=== PATIENT | male | born 1970 | race African-American/Black ===

== ENCOUNTER 2019-08-13 01:04 | Inpatient (IN) | payer MEDICAID ==
[~2019-08-13] VITALS: Ht 188 cm; Wt 124.7 kg
[2019-08-13] MEDS ORDERED: RISP1 PO (01:31)
[2019-08-13 02:08] LABS: BASOPHILS % (AUTO) 0.4 % (0.0-2.0); EOSINOPHILS % (AUTO) 0.1 % (1.0-6.0); HEMATOCRIT 44.1 % (41-53); HEMOGLOBIN 15.2 g/dL (13.5-17.5); LYMPHOCYTES % (AUTO) 7.9 % (22.0-44.0); MEAN CORPUSCULAR HEMOGLOBIN 31.6 pg (26.0-34.0); MEAN CORPUSCULAR HGB CONC 34.4 G/dL (31.0-37.0); MEAN CORPUSCULAR VOLUME 92 fL (80-100); MONOCYTES # (AUTO) 1.3 K/uL (0.1-1.0); MONOCYTES % (AUTO) 10.6 % (2.0-9.0); NEUTROPHILS # (AUTO) 9.8 K/uL (1.8-7.7); PLATELET COUNT (AUTO) 239 K/uL (150-450); RED CELL DISTRIBUTION WIDTH 13.6 % (11.5-14.5)
[2019-08-13 02:20] LABS: ANION GAP 7 mmol/L (8-16); CALCIUM, TOTAL 9.8 mg/dL (8.8-10.5); CARBON DIOXIDE 30 mmol/L (22-29); CHLORIDE 96 mmol/L (98-107); CREATININE 1.17 mg/dL (0.60-1.30); GLOMERULAR FILTR. RATE CALC > 60 mL/min (>60); GLUCOSE,RANDOM 117 mg/dL (70-110); SODIUM SERUM 133 mmol/L (136-145); UREA NITROGEN, BLOOD 15 mg/dL (7-18)
[2019-08-13 02:26] LABS: ALANINE AMINOTRANSFERASE 26 U/L (12-78); ALKALINE PHOSPHATASE 98 U/L (46-116); ASPARTATE AMINOTRANSFERASE 34 U/L (15-37); TOTAL PROTEIN, SERUM 8.5 g/dL (6.4-8.2)
[2019-08-13] MEDS ORDERED: ZOLPIDEM TARTRATE 10 MG TABLET PO PRN (03:30)
[2019-08-13] MEDS ORDERED: HALOPERIDOL 5 MG TABLET PO PRN (03:30)
[2019-08-13 06:05] VITALS: BP 142/93
[2019-08-13] MEDS ORDERED: PNEUMOCOCCAL VACCINE POLYVALENT 0.5 ML VIAL [PPSV23] IM ONE (06:30)
[2019-08-13 08:08] VITALS: BP 129/74
[2019-08-13] MEDS: VENLAFAXINE HCL 75 MG ER CAPSULE PO SCH (12:30)
[2019-08-13] MEDS ORDERED: ALBUTEROL SULFATE HFA 90 MCG/PUFF 8 GM INHALER IH PRN (13:15)
[2019-08-13] MEDS ORDERED: CloNIDine HCL 0.1 MG TABLET PO PRN (13:15)
[2019-08-13] MEDS ORDERED: DOCUSATE SODIUM 100 MG CAPSULE PO PRN (13:15)
[2019-08-13] MEDS ORDERED: IBUPROFEN 400 MG TABLET PO PRN (13:15)
[2019-08-13] MEDS ORDERED: GuaiFENesin/D-METHORPHAN [SUGAR-FREE] 200-20MG/10 ML SYRUP UDCUP PO PRN (13:15)
[2019-08-13] MEDS ORDERED: ACETAMINOPHEN 325 MG TABLET PO PRN (13:15)
[2019-08-13] MEDS ORDERED: LOPERAMIDE HCL 2 MG CAPSULE PO PRN (13:15)
[2019-08-13] MEDS ORDERED: NICOTINE 14 MG/24 HOUR PATCH TD PRN (13:15)
[2019-08-13] MEDS ORDERED: MAG HYDROX/AL HYDROX/SIMETH ES 30 ML SUSPENSION UDCUP PO PRN (13:15)
[2019-08-13] MEDS ORDERED: ONDANSETRON HCL 4 MG TABLET PO PRN (13:15)
[2019-08-13] MEDS ORDERED: MAGNESIUM HYDROXIDE SUSPENSION 30 ML UDCUP PO PRN (13:15)
[2019-08-13 16:30] VITALS: BP 139/76
[2019-08-13] MEDS: OXcarbazepine 300 MG TABLET PO SCH (16:59)
[2019-08-13] MEDS: PETROLATUM,WHITE 28 GM JELLY TP PRN (18:50)
[2019-08-13] MEDS: RisperiDONE 3 MG TABLET PO SCH (21:14)
[2019-08-13] MEDS: TRIHEXYPHENIDYL HCL 5 MG TABLET PO SCH (21:15)
[2019-08-14 03:38] VITALS: BP 136/78
[2019-08-14 08:14] LABS: BASOPHILS % (AUTO) 0.4 % (0.0-2.0); EOSINOPHILS % (AUTO) 2.7 % (1.0-6.0); HEMATOCRIT 38.4 % (41-53); HEMOGLOBIN 12.7 g/dL (13.5-17.5); LYMPHOCYTES # (AUTO) 1.7 K/uL (1.0-4.8); LYMPHOCYTES % (AUTO) 30.2 % (22.0-44.0); MEAN CORPUSCULAR HGB CONC 33.2 G/dL (31.0-37.0); MEAN CORPUSCULAR VOLUME 94 fL (80-100); MONOCYTES # (AUTO) 0.8 K/uL (0.1-1.0); MONOCYTES % (AUTO) 14.5 % (2.0-9.0); NEUTROPHILS # (AUTO) 2.9 K/uL (1.8-7.7); NEUTROPHILS % (AUTO) 52.2 % (40.0-70.0); PLATELET COUNT (AUTO) 193 K/uL (150-450); RED BLOOD CELL COUNT(AUTO) 4.11 MIL/uL (4.50-5.90); RED CELL DISTRIBUTION WIDTH 13.7 % (11.5-14.5)
[2019-08-14 08:19] VITALS: BP 111/72
[2019-08-14] MEDS: OXcarbazepine 300 MG TABLET PO SCH ×2 (08:20→16:15)
[2019-08-14] MEDS: VENLAFAXINE HCL 75 MG ER CAPSULE PO SCH (08:20)
[2019-08-14 08:37] LABS: CHOL/HDL RATIO 2.9 (4.2-7.3)
[2019-08-14] MEDS: LORazepam 2 MG TABLET PO PRN ×2 (13:21→21:08)
[2019-08-14] MEDS ORDERED: NICOTINE POLACRILEX 2 MG LOZENGE PO PRN (20:30)
[2019-08-14] MEDS: RisperiDONE 3 MG TABLET PO SCH (20:47)
[2019-08-14] MEDS: TRIHEXYPHENIDYL HCL 5 MG TABLET PO SCH (20:47)
[2019-08-14] MEDS: PETROLATUM,WHITE 28 GM JELLY TP PRN (21:16)
[2019-08-14 21:18] VITALS: BP 137/93
[2019-08-15 00:26] VITALS: BP 118/64
[2019-08-15 08:18] VITALS: BP 145/74
[2019-08-15 08:56] LABS: ALANINE AMINOTRANSFERASE 26 U/L (12-78); ALBUMIN 3.6 g/dL (3.4-5.0); ALKALINE PHOSPHATASE 73 U/L (46-116); ANION GAP 6 mmol/L (8-16); ASPARTATE AMINOTRANSFERASE 19 U/L (15-37); BILIRUBIN,TOTAL 0.4 mg/dL (0.1-1.0); CALCIUM, TOTAL 8.8 mg/dL (8.8-10.5); CARBON DIOXIDE 30 mmol/L (22-29); CHLORIDE 101 mmol/L (98-107); CREATININE 0.94 mg/dL (0.60-1.30); GLOMERULAR FILTR. RATE CALC > 60 mL/min (>60); GLUCOSE,RANDOM 95 mg/dL (70-110); POTASSIUM 4.3 mmol/L (3.5-5.1); SODIUM SERUM 137 mmol/L (136-145); TOTAL PROTEIN, SERUM 6.5 g/dL (6.4-8.2); UREA NITROGEN, BLOOD 13 mg/dL (7-18)
[2019-08-15] MEDS: VENLAFAXINE HCL 75 MG ER CAPSULE PO SCH (09:18)
[2019-08-15] MEDS: OXcarbazepine 300 MG TABLET PO SCH ×2 (09:18→16:53)
[2019-08-15] MEDS: PETROLATUM,WHITE 28 GM JELLY TP PRN (09:20)
[2019-08-15] MEDS: LORazepam 2 MG TABLET PO PRN ×2 (12:06→20:48)
[2019-08-15 16:17] VITALS: BP 135/71
[2019-08-15] MEDS ORDERED: NICOTINE 7 MG/24 HOUR PATCH TD SCH (19:30)
[2019-08-15] MEDS: TRIHEXYPHENIDYL HCL 5 MG TABLET PO SCH (20:48)
[2019-08-15] MEDS: RisperiDONE 3 MG TABLET PO SCH (20:48)
[2019-08-16 01:04] VITALS: BP 125/69
[2019-08-16] MEDS: PETROLATUM,WHITE 28 GM JELLY TP PRN (06:55)
[2019-08-16] MEDS: OXcarbazepine 300 MG TABLET PO SCH (08:12)
[2019-08-16] MEDS: VENLAFAXINE HCL 75 MG ER CAPSULE PO SCH (08:12)
[2019-08-16 08:16] VITALS: BP 122/65
[2019-08-16] MEDS ORDERED: VENL-67 PO (08:58)
[2019-08-16] MEDS ORDERED: RISP3 PO (08:58)
[2019-08-16] MEDS ORDERED: TRIH5TAB2 PO (08:58)
[2019-08-16] MEDS ORDERED: OXCA300T29 PO (08:58)
== END 2019-08-16 10:45 | disposition home or self-care (01) | DRG 750 ==
LOC: EMS 01:04 → B2S 03:00
DX: F25.1 Schizoaffective disorder, depressive type (principal); R45.851 Suicidal ideations; Z59.0 Homelessness; D72.829 Elevated white blood cell count, unspecified; F12.10 Cannabis abuse, uncomplicated; S61.519A Laceration without foreign body of unspecified wrist, initial encounter; F15.10 Other stimulant abuse, uncomplicated; F17.200 Nicotine dependence, unspecified, uncomplicated; F43.10 Post-traumatic stress disorder, unspecified; I10 Essential (primary) hypertension; Z79.899 Other long term (current) drug therapy; Z71.6 Tobacco abuse counseling; Z65.3 Problems related to other legal circumstances; X58.XXXA Exposure to other specified factors, initial encounter; Y93.89 Activity, other specified; Y92.89 Other specified places as the place of occurrence of the external cause; Y99.8 Other external cause status; Z23 Encounter for immunization
CPT/HCPCS: 87081; 90732; G0480

== ENCOUNTER 2019-08-18 03:08 | Inpatient (IN) | payer MEDICAID ==
[~2019-08-18] VITALS: Ht 193 cm; Wt 127.0 kg
[~2019-08-18 03:08] MED LIST: OXCA300T29 PO; RISP3 PO; TRIH5TAB2 PO; VENL-67 PO
[2019-08-18 05:10] VITALS: BP 117/71
[2019-08-18] MEDS ORDERED: HALOPERIDOL 5 MG TABLET PO PRN (05:15)
[2019-08-18] MEDS ORDERED: -PHARMACY VACCINE NOTE- MISC ONE (05:30)
[2019-08-18 08:00] VITALS: BP 100/53
[2019-08-18] MEDS ORDERED: ALBUTEROL SULFATE HFA 90 MCG/PUFF 8 GM INHALER IH PRN (08:30)
[2019-08-18] MEDS ORDERED: MAGNESIUM HYDROXIDE SUSPENSION 30 ML UDCUP PO PRN (08:30)
[2019-08-18] MEDS ORDERED: CloNIDine HCL 0.1 MG TABLET PO PRN (08:30)
[2019-08-18] MEDS ORDERED: ACETAMINOPHEN 325 MG TABLET PO PRN (08:30)
[2019-08-18] MEDS ORDERED: DOCUSATE SODIUM 100 MG CAPSULE PO PRN (08:30)
[2019-08-18] MEDS ORDERED: GuaiFENesin/D-METHORPHAN [SUGAR-FREE] 200-20MG/10 ML SYRUP UDCUP PO PRN (08:30)
[2019-08-18] MEDS ORDERED: ONDANSETRON HCL 4 MG TABLET PO PRN (08:30)
[2019-08-18] MEDS ORDERED: LOPERAMIDE HCL 2 MG CAPSULE PO PRN (08:30)
[2019-08-18] MEDS ORDERED: IBUPROFEN 400 MG TABLET PO PRN (08:30)
[2019-08-18] MEDS ORDERED: MAG HYDROX/AL HYDROX/SIMETH ES 30 ML SUSPENSION UDCUP PO PRN (08:30)
[2019-08-18] MEDS ORDERED: VENLAFAXINE HCL 37.5 MG TABLET PO SCH (09:00)
[2019-08-18] MEDS: LORazepam 1 MG TABLET PO PRN ×2 (09:28→16:38)
[2019-08-18] MEDS: OXcarbazepine 300 MG TABLET PO SCH ×2 (09:28→17:30)
[2019-08-18] MEDS: TRIHEXYPHENIDYL HCL 5 MG TABLET PO SCH ×2 (09:28→16:38)
[2019-08-18] MEDS ORDERED: VENLAFAXINE HCL 75 MG ER CAPSULE PO SCH ×2 (09:34→09:35)
[2019-08-18 16:09] VITALS: BP 111/59
[2019-08-18] MEDS: RisperiDONE 3 MG TABLET PO SCH (21:07)
[2019-08-19 04:35] VITALS: BP 121/64
[2019-08-19 08:07] VITALS: BP 126/77
[2019-08-19] MEDS: TRIHEXYPHENIDYL HCL 5 MG TABLET PO SCH ×2 (08:33→16:44)
[2019-08-19] MEDS: OXcarbazepine 300 MG TABLET PO SCH ×2 (08:33→16:45)
[2019-08-19] MEDS: BuPROPion HCL XL 150 MG ER TABLET PO SCH (08:33)
[2019-08-19 09:50] LABS: BASOPHILS % (AUTO) 0.6 % (0.0-2.0); EOSINOPHILS % (AUTO) 2.3 % (1.0-6.0); HEMATOCRIT 40.2 % (41-53); HEMOGLOBIN 13.6 g/dL (13.5-17.5); LYMPHOCYTES % (AUTO) 20.3 % (22.0-44.0); MEAN CORPUSCULAR HEMOGLOBIN 31.7 pg (26.0-34.0); MEAN CORPUSCULAR HGB CONC 33.9 G/dL (31.0-37.0); MEAN CORPUSCULAR VOLUME 94 fL (80-100); MONOCYTES # (AUTO) 0.4 K/uL (0.1-1.0); MONOCYTES % (AUTO) 8.3 % (2.0-9.0); NEUTROPHILS # (AUTO) 3.5 K/uL (1.8-7.7); NEUTROPHILS % (AUTO) 68.5 % (40.0-70.0); PLATELET COUNT (AUTO) 222 K/uL (150-450); RED BLOOD CELL COUNT(AUTO) 4.29 MIL/uL (4.50-5.90); RED CELL DISTRIBUTION WIDTH 13.8 % (11.5-14.5)
[2019-08-19 10:05] LABS: HEMOGLOBIN A1C 5.3 % (3.8-5.6)
[2019-08-19 10:16] LABS: ALANINE AMINOTRANSFERASE 23 U/L (12-78); ALKALINE PHOSPHATASE 89 U/L (46-116); ANION GAP 5 mmol/L (8-16); ASPARTATE AMINOTRANSFERASE 20 U/L (15-37); BILIRUBIN,TOTAL 0.3 mg/dL (0.1-1.0); CALCIUM, TOTAL 9.1 mg/dL (8.8-10.5); CARBON DIOXIDE 29 mmol/L (22-29); CHLORIDE 104 mmol/L (98-107); CHOL/HDL RATIO 2.9 (4.2-7.3); CHOLESTEROL 152 mg/dL (131-200); FREE T4 (FREE THYROXINE) 0.96 ng/dL (0.76-1.46); GLOMERULAR FILTR. RATE CALC > 60 mL/min (>60); GLUCOSE,RANDOM 124 mg/dL (70-110); HDL CHOLESTEROL 53 mg/dL (40-60); LDL CHOL (CALC.) 82 mg/dL (0-130); POTASSIUM 4.2 mmol/L (3.5-5.1); SODIUM SERUM 138 mmol/L (136-145); THYROID STIMULATING HORMONE 0.94 uIU/mL (0.36-3.74); TOTAL PROTEIN, SERUM 7.3 g/dL (6.4-8.2); TRIGLYCERIDES 86 mg/dL (15-150); UREA NITROGEN, BLOOD 20 mg/dL (7-18)
[2019-08-19] MEDS: LORazepam 1 MG TABLET PO PRN ×2 (16:44→20:54)
[2019-08-19 18:40] VITALS: BP 107/60
[2019-08-19] MEDS: RisperiDONE 3 MG TABLET PO SCH (20:42)
[2019-08-20 01:47] VITALS: BP 140/90
[2019-08-20 08:07] VITALS: BP 126/76
[2019-08-20] MEDS: BuPROPion HCL XL 150 MG ER TABLET PO SCH (08:31)
[2019-08-20] MEDS: OXcarbazepine 300 MG TABLET PO SCH ×2 (08:31→16:01)
[2019-08-20] MEDS: TRIHEXYPHENIDYL HCL 5 MG TABLET PO SCH ×2 (08:31→16:01)
[2019-08-20] MEDS: LORazepam 1 MG TABLET PO PRN ×4 (08:50→20:38)
[2019-08-20] MEDS: NICOTINE 14 MG/24 HOUR PATCH TD PRN (12:35)
[2019-08-20 16:22] VITALS: BP 112/64
[2019-08-20] MEDS: RisperiDONE 3 MG TABLET PO SCH (20:38)
[2019-08-21 04:29] VITALS: BP 126/88
[2019-08-21] MEDS: LORazepam 1 MG TABLET PO PRN ×5 (06:09→21:04)
[2019-08-21] MEDS: PETROLATUM,WHITE 28 GM JELLY TP PRN (06:10)
[2019-08-21 08:06] VITALS: BP 136/80
[2019-08-21] MEDS: TRIHEXYPHENIDYL HCL 5 MG TABLET PO SCH ×2 (09:14→16:10)
[2019-08-21] MEDS: OXcarbazepine 300 MG TABLET PO SCH ×2 (09:14→16:10)
[2019-08-21] MEDS: BuPROPion HCL XL 150 MG ER TABLET PO SCH (09:14)
[2019-08-21 16:00] VITALS: BP 118/74
[2019-08-21] MEDS: NICOTINE 14 MG/24 HOUR PATCH TD PRN (19:04)
[2019-08-21] MEDS: RisperiDONE 3 MG TABLET PO SCH (21:04)
[2019-08-21] MEDS: ZOLPIDEM TARTRATE 10 MG TABLET PO PRN (21:04)
[2019-08-22 05:05] VITALS: BP 136/79
[2019-08-22] MEDS: LORazepam 1 MG TABLET PO PRN ×3 (06:58→20:30)
[2019-08-22] MEDS: TRIHEXYPHENIDYL HCL 5 MG TABLET PO SCH ×2 (08:34→16:04)
[2019-08-22] MEDS: BuPROPion HCL XL 150 MG ER TABLET PO SCH (08:34)
[2019-08-22] MEDS: OXcarbazepine 300 MG TABLET PO SCH ×2 (08:35→16:04)
[2019-08-22] MEDS ORDERED: BuPROPion HCL XL 150 MG ER TABLET PO ONE (10:30)
[2019-08-22] MEDS: PETROLATUM,WHITE 28 GM JELLY TP PRN (12:56)
[2019-08-22 15:13] VITALS: BP 148/96
[2019-08-22 16:04] VITALS: BP 113/67
[2019-08-22] MEDS: ZOLPIDEM TARTRATE 10 MG TABLET PO PRN (20:30)
[2019-08-22] MEDS: RisperiDONE 3 MG TABLET PO SCH (20:30)
[2019-08-23 03:13] VITALS: BP 137/70
[2019-08-23 05:35] VITALS: BP 130/70
[2019-08-23] MEDS: LORazepam 1 MG TABLET PO PRN ×3 (05:48→17:40)
[2019-08-23] MEDS ORDERED: BUPR-93 PO (07:46)
[2019-08-23] MEDS ORDERED: TRIH5TAB2 PO ×2 (07:46→08:27)
[2019-08-23] MEDS ORDERED: OXCA600T19 PO (07:46)
[2019-08-23] MEDS: TRIHEXYPHENIDYL HCL 5 MG TABLET PO SCH ×2 (08:07→16:36)
[2019-08-23] MEDS: OXcarbazepine 300 MG TABLET PO SCH ×2 (08:07→16:36)
[2019-08-23] MEDS: BuPROPion HCL XL 150 MG ER TABLET PO SCH (08:07)
[2019-08-23 08:15] VITALS: BP 125/75
[2019-08-23] MEDS ORDERED: RISP3 PO (08:27)
[2019-08-23] MEDS ORDERED: BUPR-47 PO (08:27)
[2019-08-23] MEDS ORDERED: OXCA300T28 PO (08:27)
[2019-08-23 16:07] VITALS: BP 126/72
[2019-08-23] MEDS: RisperiDONE 3 MG TABLET PO SCH (20:36)
[2019-08-24 04:41] VITALS: BP 142/78
[2019-08-24] MEDS ORDERED: RISP3 PO ×2 (04:48→04:49)
[2019-08-24] MEDS ORDERED: TRIH5TAB2 PO (04:49)
[2019-08-24] MEDS ORDERED: OXCA600T19 PO (04:50)
[2019-08-24] MEDS ORDERED: BUPR-93 PO (04:51)
[2019-08-24] MEDS: LORazepam 1 MG TABLET PO PRN (06:37)
[2019-08-24] MEDS: BuPROPion HCL XL 150 MG ER TABLET PO SCH (08:18)
[2019-08-24] MEDS: TRIHEXYPHENIDYL HCL 5 MG TABLET PO SCH (08:18)
[2019-08-24] MEDS: OXcarbazepine 300 MG TABLET PO SCH (08:18)
[2019-08-24 08:22] VITALS: BP 125/71
== END 2019-08-24 08:46 | disposition home or self-care (01) | DRG 751 ==
LOC: B3A 05:10
PROVIDERS: ADMIT Psychiatry & Neurology Psychiatry
DX: F32.2 Major depressive disorder, single episode, severe without psychotic features (principal); R45.851 Suicidal ideations; E78.00 Pure hypercholesterolemia, unspecified; F43.10 Post-traumatic stress disorder, unspecified; F12.10 Cannabis abuse, uncomplicated; F17.210 Nicotine dependence, cigarettes, uncomplicated; I10 Essential (primary) hypertension; K59.00 Constipation, unspecified; Z79.899 Other long term (current) drug therapy; Z81.8 Family history of other mental and behavioral disorders
CPT/HCPCS: 83036; 84436; 84439; 84443; 87081; G0480

== ENCOUNTER 2019-08-27 22:22 | Inpatient (IN) | payer MEDICAID ==
[~2019-08-27] VITALS: Ht 188 cm; Wt 122.2 kg
[~2019-08-27 22:22] MED LIST changes: +BUPR-93 PO; -OXCA300T29 PO; +OXCA600T19 PO; -VENL-67 PO
[2019-08-27] MEDS ORDERED: SODIUM CHLORIDE 0.9% 250 ML IRRIG SOLUTION BOTTLE IRRIG ONE (23:15)
[2019-08-27 23:34] LABS: BASOPHILS % (AUTO) 0.5 % (0.0-2.0); EOSINOPHILS % (AUTO) 1.6 % (1.0-6.0); HEMATOCRIT 38.9 % (41-53); HEMOGLOBIN 12.9 g/dL (13.5-17.5); LYMPHOCYTES # (AUTO) 1.2 K/uL (1.0-4.8); LYMPHOCYTES % (AUTO) 15.7 % (22.0-44.0); MEAN CORPUSCULAR HEMOGLOBIN 31.2 pg (26.0-34.0); MEAN CORPUSCULAR HGB CONC 33.3 G/dL (31.0-37.0); MEAN CORPUSCULAR VOLUME 94 fL (80-100); MONOCYTES # (AUTO) 0.8 K/uL (0.1-1.0); MONOCYTES % (AUTO) 10.4 % (2.0-9.0); NEUTROPHILS # (AUTO) 5.7 K/uL (1.8-7.7); NEUTROPHILS % (AUTO) 71.8 % (40.0-70.0); PLATELET COUNT (AUTO) 244 K/uL (150-450); RED BLOOD CELL COUNT(AUTO) 4.15 MIL/uL (4.50-5.90); RED CELL DISTRIBUTION WIDTH 13.6 % (11.5-14.5)
[2019-08-27] MEDS ORDERED: HALOPERIDOL 5 MG TABLET PO PRN (23:45)
[2019-08-27 23:48] LABS: ANION GAP 7 mmol/L (8-16); CALCIUM, TOTAL 9.1 mg/dL (8.8-10.5); CARBON DIOXIDE 27 mmol/L (22-29); CHLORIDE 101 mmol/L (98-107); CREATININE 1.18 mg/dL (0.60-1.30); GLOMERULAR FILTR. RATE CALC > 60 mL/min (>60); GLUCOSE,RANDOM 144 mg/dL (70-110); POTASSIUM 3.6 mmol/L (3.5-5.1); SODIUM SERUM 135 mmol/L (136-145); UREA NITROGEN, BLOOD 30 mg/dL (7-18)
[2019-08-27 23:54] LABS: ALANINE AMINOTRANSFERASE 31 U/L (12-78); ALBUMIN 4.4 g/dL (3.4-5.0); ALKALINE PHOSPHATASE 86 U/L (46-116); ASPARTATE AMINOTRANSFERASE 42 U/L (15-37); BILIRUBIN,TOTAL 0.7 mg/dL (0.1-1.0); TOTAL PROTEIN, SERUM 7.9 g/dL (6.4-8.2)
[2019-08-28] MEDS: LORazepam 2 MG TABLET PO PRN (02:18)
[2019-08-28] MEDS: ZOLPIDEM TARTRATE 10 MG TABLET PO PRN (02:18)
[2019-08-28 03:24] VITALS: BP 135/91
[2019-08-28 08:04] LABS: CHOL/HDL RATIO 3.4 (4.2-7.3)
[2019-08-28 08:56] VITALS: BP 94/50
[2019-08-28 09:36] VITALS: BP 131/67
[2019-08-28] MEDS ORDERED: OXCA300T29 PO (11:01)
[2019-08-28] MEDS: OXcarbazepine 300 MG TABLET PO SCH ×2 (11:34→16:09)
[2019-08-28] MEDS: RisperiDONE 1 MG TABLET PO SCH (11:34)
[2019-08-28] MEDS: TRIHEXYPHENIDYL HCL 5 MG TABLET PO SCH ×2 (11:34→16:09)
[2019-08-28] MEDS: BuPROPion HCL XL 150 MG ER TABLET PO SCH (11:34)
[2019-08-28] MEDS ORDERED: ONDANSETRON HCL 4 MG TABLET PO PRN (11:45)
[2019-08-28] MEDS ORDERED: LOPERAMIDE HCL 2 MG CAPSULE PO PRN (11:45)
[2019-08-28] MEDS ORDERED: DOCUSATE SODIUM 100 MG CAPSULE PO PRN (11:45)
[2019-08-28] MEDS ORDERED: CloNIDine HCL 0.1 MG TABLET PO PRN (11:45)
[2019-08-28] MEDS ORDERED: GuaiFENesin/D-METHORPHAN [SUGAR-FREE] 200-20MG/10 ML SYRUP UDCUP PO PRN (11:45)
[2019-08-28] MEDS ORDERED: IBUPROFEN 400 MG TABLET PO PRN (11:45)
[2019-08-28] MEDS ORDERED: NICOTINE 14 MG/24 HOUR PATCH TD PRN (11:45)
[2019-08-28] MEDS ORDERED: ACETAMINOPHEN 325 MG TABLET PO PRN (11:45)
[2019-08-28] MEDS ORDERED: ALBUTEROL SULFATE HFA 90 MCG/PUFF 8 GM INHALER IH PRN (11:45)
[2019-08-28] MEDS ORDERED: MAG HYDROX/AL HYDROX/SIMETH ES 30 ML SUSPENSION UDCUP PO PRN (11:45)
[2019-08-28] MEDS ORDERED: MAGNESIUM HYDROXIDE SUSPENSION 30 ML UDCUP PO PRN (11:45)
[2019-08-28 16:31] VITALS: BP 158/78
[2019-08-28] MEDS: RisperiDONE 3 MG TABLET PO SCH (20:12)
[2019-08-29] MEDS: PETROLATUM,WHITE 28 GM JELLY TP PRN ×3 (00:07→20:18)
[2019-08-29] MEDS: LORazepam 2 MG TABLET PO PRN ×2 (00:15→10:16)
[2019-08-29] MEDS: ZOLPIDEM TARTRATE 10 MG TABLET PO PRN (00:15)
[2019-08-29 05:50] VITALS: BP 124/75
[2019-08-29] MEDS: BuPROPion HCL XL 150 MG ER TABLET PO SCH (08:24)
[2019-08-29] MEDS: TRIHEXYPHENIDYL HCL 5 MG TABLET PO SCH ×2 (08:25→16:13)
[2019-08-29] MEDS: RisperiDONE 1 MG TABLET PO SCH (08:25)
[2019-08-29] MEDS: OXcarbazepine 300 MG TABLET PO SCH ×2 (08:25→16:13)
[2019-08-29 09:16] VITALS: BP 144/80
[2019-08-29 18:54] VITALS: BP 135/75
[2019-08-29] MEDS: RisperiDONE 3 MG TABLET PO SCH (20:17)
[2019-08-30 03:30] VITALS: BP 146/76
[2019-08-30] MEDS: LORazepam 2 MG TABLET PO PRN ×3 (05:42→18:09)
[2019-08-30] MEDS: OXcarbazepine 300 MG TABLET PO SCH ×2 (09:29→16:33)
[2019-08-30] MEDS: RisperiDONE 1 MG TABLET PO SCH (09:29)
[2019-08-30] MEDS: BuPROPion HCL XL 150 MG ER TABLET PO SCH (09:29)
[2019-08-30] MEDS: TRIHEXYPHENIDYL HCL 5 MG TABLET PO SCH ×2 (09:29→16:32)
[2019-08-30] MEDS: PETROLATUM,WHITE 28 GM JELLY TP PRN (12:19)
[2019-08-30 16:46] VITALS: BP 144/94
[2019-08-30] MEDS: RisperiDONE 3 MG TABLET PO SCH (20:44)
[2019-08-31] MEDS: BuPROPion HCL XL 150 MG ER TABLET PO SCH (08:13)
[2019-08-31] MEDS: RisperiDONE 1 MG TABLET PO SCH (08:13)
[2019-08-31] MEDS: OXcarbazepine 300 MG TABLET PO SCH (08:14)
[2019-08-31] MEDS: TRIHEXYPHENIDYL HCL 5 MG TABLET PO SCH (08:14)
[2019-08-31] MEDS: PETROLATUM,WHITE 28 GM JELLY TP PRN (08:20)
[2019-08-31] MEDS: LORazepam 2 MG TABLET PO PRN (09:21)
[2019-08-31] MEDS ORDERED: RISP1 PO (10:10)
== END 2019-08-31 13:35 | disposition home or self-care (01) | DRG 885 ==
LOC: EMS 22:22 → UNDOADMIN 23:52 → 3EI 23:52
DX: F25.1 Schizoaffective disorder, depressive type (principal); E87.1 Hypo-osmolality and hyponatremia; R45.851 Suicidal ideations; D64.9 Anemia, unspecified; E78.5 Hyperlipidemia, unspecified; E87.6 Hypokalemia; F10.10 Alcohol abuse, uncomplicated; F17.200 Nicotine dependence, unspecified, uncomplicated; F43.12 Post-traumatic stress disorder, chronic; I10 Essential (primary) hypertension; R45.850 Homicidal ideations; S61.512A Laceration without foreign body of left wrist, initial encounter; X78.8XXA Intentional self-harm by other sharp object, initial encounter; Y93.89 Activity, other specified; Y92.89 Other specified places as the place of occurrence of the external cause; Y99.8 Other external cause status; Z79.899 Other long term (current) drug therapy
CPT/HCPCS: 87081; G0480

== ENCOUNTER 2020-02-09 11:48 | Inpatient (IN) | payer MEDICAID ==
[~2020-02-09] VITALS: Ht 188 cm; Wt 123.0 kg
[~2020-02-09 11:48] MED LIST changes: +OXCA300T57 PO; -OXCA600T19 PO; +RISP1TAB27 PO; -RISP3 PO; +RISP3TAB14 PO
[2020-02-09] MEDS ORDERED: RisperiDONE 1 MG TABLET PO ONE (14:15)
[2020-02-09] MEDS ORDERED: LORazepam 2 MG/ML VIAL IM ONE (14:15)
[2020-02-09] MEDS ORDERED: PERTUSS(ACELL),DIPH,TET VAC/PF 0.5 ML VIAL IM ONE (15:30)
[2020-02-09 15:43] LABS: AMPHET/METH SCREEN,URINE POSITIVE (NEGATIVE); BARBITURATE SCREEN, URINE NEGATIVE (NEGATIVE); BENZODIAZEPINES SCREEN,URINE NEGATIVE (NEGATIVE); CANNABINOID SCREEN,URINE NEGATIVE (NEGATIVE); COCAINE SCREEN,URINE NEGATIVE (NEGATIVE); METHADONE SCREEN, URINE NEGATIVE (NEGATIVE); OPIATE SCREEN,URINE NEGATIVE (NEGATIVE)
[2020-02-09 15:46] LABS: PHENCYCLIDINE SCREEN,URINE NEGATIVE (NEGATIVE)
[2020-02-09 16:26] LABS: BASOPHILS % (AUTO) 0.3 % (0.0-2.0); EOSINOPHILS % (AUTO) 0.5 % (1.0-6.0); HEMATOCRIT 38.2 % (41-53); LYMPHOCYTES # (AUTO) 1.1 K/uL (1.0-4.8); LYMPHOCYTES % (AUTO) 15.6 % (22.0-44.0); MEAN CORPUSCULAR HEMOGLOBIN 31.8 pg (26.0-34.0); MEAN CORPUSCULAR HGB CONC 33.9 G/dL (31.0-37.0); MEAN CORPUSCULAR VOLUME 94 fL (80-100); MONOCYTES # (AUTO) 0.7 K/uL (0.1-1.0); MONOCYTES % (AUTO) 9.8 % (2.0-9.0); NEUTROPHILS # (AUTO) 5.1 K/uL (1.8-7.7); NEUTROPHILS % (AUTO) 73.8 % (40.0-70.0); PLATELET COUNT (AUTO) 259 K/uL (150-450); RED BLOOD CELL COUNT(AUTO) 4.07 MIL/uL (4.50-5.90); RED CELL DISTRIBUTION WIDTH 12.7 % (11.5-14.5)
[2020-02-09 16:39] LABS: ANION GAP 9 mmol/L (8-16); CARBON DIOXIDE 27 mmol/L (22-29); CHLORIDE 106 mmol/L (98-107); GLOMERULAR FILTR. RATE CALC > 60 mL/min (>60); GLUCOSE,RANDOM 96 mg/dL (70-110); POTASSIUM 3.8 mmol/L (3.5-5.1); SODIUM SERUM 142 mmol/L (136-145); UREA NITROGEN, BLOOD 14 mg/dL (7-18)
[2020-02-09] MEDS ORDERED: HALOPERIDOL 5 MG TABLET PO PRN (16:45)
[2020-02-09] MEDS ORDERED: ZOLPIDEM TARTRATE 10 MG TABLET PO PRN (16:45)
[2020-02-09 16:46] LABS: ALANINE AMINOTRANSFERASE 34 U/L (12-78); ALBUMIN 4.1 g/dL (3.4-5.0); ALKALINE PHOSPHATASE 82 U/L (46-116); ASPARTATE AMINOTRANSFERASE 44 U/L (15-37); BILIRUBIN,TOTAL 0.6 mg/dL (0.1-1.0); TOTAL PROTEIN, SERUM 7.5 g/dL (6.4-8.2)
[2020-02-09 16:54] LABS: COVID AG,FIA SOURCE NASAL SWAB
[2020-02-09] MEDS ORDERED: LISINOPRIL 10 MG TABLET PO ONE (19:45)
[2020-02-09 21:58] VITALS: BP 154/101
[2020-02-09] MEDS ORDERED: DOCUSATE SODIUM 100 MG CAPSULE PO PRN (22:00)
[2020-02-09] MEDS ORDERED: MAG HYDROX/AL HYDROX/SIMETH ES 30 ML SUSPENSION UDCUP PO PRN (22:00)
[2020-02-09] MEDS ORDERED: ONDANSETRON HCL 4 MG TABLET PO PRN (22:00)
[2020-02-09] MEDS ORDERED: ACETAMINOPHEN 325 MG TABLET PO PRN (22:00)
[2020-02-09] MEDS ORDERED: MAGNESIUM HYDROXIDE SUSPENSION 30 ML UDCUP PO PRN (22:00)
[2020-02-09] MEDS ORDERED: PETROLATUM,WHITE 28 GM JELLY TP PRN (22:00)
[2020-02-09] MEDS ORDERED: INFLUENZA VIRUS VACCINE QVS 2020-21 (6MO+)/PF 60 MCG/0.5 ML SYRINGE IM ONE (22:00)
[2020-02-09] MEDS ORDERED: -PHARMACY VACCINE NOTE- MISC ONE (22:00)
[2020-02-09] MEDS ORDERED: NICOTINE 14 MG/24 HOUR PATCH TD PRN (22:00)
[2020-02-09] MEDS ORDERED: GuaiFENesin/D-METHORPHAN [SUGAR-FREE] 200-20MG/10 ML SYRUP UDCUP PO PRN (22:00)
[2020-02-09] MEDS ORDERED: ALBUTEROL SULFATE HFA 90 MCG/PUFF 8 GM INHALER IH PRN (22:00)
[2020-02-09] MEDS ORDERED: LOPERAMIDE HCL 2 MG CAPSULE PO PRN (22:00)
[2020-02-09] MEDS ORDERED: CloNIDine HCL 0.1 MG TABLET PO PRN (22:00)
[2020-02-09] MEDS ORDERED: IBUPROFEN 400 MG TABLET PO PRN (22:00)
[2020-02-10] MEDS: LORazepam 2 MG TABLET PO PRN ×3 (07:40→16:56)
[2020-02-10 08:17] VITALS: BP 137/83
[2020-02-10] MEDS ORDERED: RisperiDONE 3 MG TABLET PO SCH (10:30)
[2020-02-10] MEDS: OXcarbazepine 300 MG TABLET PO SCH ×2 (10:56→16:56)
[2020-02-10] MEDS: TRIHEXYPHENIDYL HCL 5 MG TABLET PO SCH ×2 (10:56→16:56)
[2020-02-10] MEDS: BuPROPion HCL 100 MG SR TABLET PO SCH ×2 (11:13→16:56)
[2020-02-10 16:17] VITALS: BP 139/92
[2020-02-10] MEDS: BACITRACIN 28 GM OINTMENT TP SCH (16:56)
[2020-02-10] MEDS: RisperiDONE 2 MG TABLET PO SCH (16:56)
[2020-02-11 04:25] VITALS: BP 138/86
[2020-02-11 08:23] VITALS: BP 136/73
[2020-02-11] MEDS: TRIHEXYPHENIDYL HCL 5 MG TABLET PO SCH ×2 (08:31→17:05)
[2020-02-11] MEDS: BuPROPion HCL 100 MG SR TABLET PO SCH ×2 (08:31→17:05)
[2020-02-11] MEDS: RisperiDONE 2 MG TABLET PO SCH ×2 (08:32→17:04)
[2020-02-11] MEDS: OXcarbazepine 300 MG TABLET PO SCH ×2 (08:32→17:04)
[2020-02-11] MEDS: BACITRACIN 28 GM OINTMENT TP SCH ×2 (08:35→17:05)
[2020-02-11] MEDS: LORazepam 2 MG TABLET PO PRN ×3 (09:09→18:53)
[2020-02-11 16:10] VITALS: BP 126/77
[2020-02-12 00:29] VITALS: BP 130/75
[2020-02-12] MEDS ORDERED: TRIH5TAB2 PO (05:18)
[2020-02-12] MEDS ORDERED: RISP2TAB76 PO (05:18)
[2020-02-12] MEDS ORDERED: OXCA300T57 PO (05:18)
[2020-02-12] MEDS ORDERED: BUPR100SR PO (05:18)
[2020-02-12] MEDS: TRIHEXYPHENIDYL HCL 5 MG TABLET PO SCH (08:01)
[2020-02-12] MEDS: RisperiDONE 2 MG TABLET PO SCH (08:01)
[2020-02-12] MEDS: OXcarbazepine 300 MG TABLET PO SCH (08:01)
[2020-02-12] MEDS: BuPROPion HCL 100 MG SR TABLET PO SCH (08:01)
[2020-02-12 08:25] VITALS: BP 142/72
[2020-02-12] MEDS: LORazepam 2 MG TABLET PO PRN (08:54)
[2020-02-12] MEDS: BACITRACIN 28 GM OINTMENT TP SCH (09:13)
== END 2020-02-12 09:20 | disposition home or self-care (01) | DRG 750 ==
LOC: EMS 12:47 → B3A 19:30
DX: F25.1 Schizoaffective disorder, depressive type (principal); F15.10 Other stimulant abuse, uncomplicated; I10 Essential (primary) hypertension; E66.9 Obesity, unspecified; D64.9 Anemia, unspecified; E78.5 Hyperlipidemia, unspecified; Z59.0 Homelessness; Z20.828 Contact with and (suspected) exposure to other viral communicable diseases; Z28.21 Immunization not carried out because of patient refusal
CPT/HCPCS: 87426; 90686; 90715; G0480; J2060

== ENCOUNTER 2021-01-19 06:08 | Inpatient (IN) | payer MEDICAID ==
[~2021-01-19] VITALS: Ht 188 cm; Wt 114.5 kg
[~2021-01-19 06:08] MED LIST changes: -BUPR-93 PO; +BUPR100SR PO; -RISP1TAB27 PO; +RISP2TAB76 PO; -RISP3TAB14 PO; -TRIH5TAB2 PO; +TRIH5TAB3 PO
[2021-01-19 07:42] LABS: GLUCOMETER DEV NAME(LOC) POC.BV
[2021-01-19] MEDS ORDERED: ZOLPIDEM TARTRATE 10 MG TABLET PO PRN (08:00)
[2021-01-19] MEDS ORDERED: MAGNESIUM HYDROXIDE SUSPENSION 30 ML UDCUP PO PRN (08:00)
[2021-01-19] MEDS ORDERED: ACETAMINOPHEN 325 MG TABLET PO PRN (08:00)
[2021-01-19] MEDS ORDERED: GuaiFENesin/D-METHORPHAN [SUGAR-FREE] 200-20MG/10 ML SYRUP UDCUP PO PRN (08:00)
[2021-01-19] MEDS ORDERED: MAG HYDROX/AL HYDROX/SIMETH ES 30 ML SUSPENSION UDCUP PO PRN (08:00)
[2021-01-19] MEDS ORDERED: OLANZapine 5 MG RAPDIS TABLET PO PRN (08:00)
[2021-01-19] MEDS ORDERED: TUBERCULIN, PURIFIED PROTEIN DERIVATIVE 5 TU/0.1 ML SYRINGE ID ONE (08:00)
[2021-01-19] MEDS ORDERED: PROMETHAZINE HCL 25 MG TABLET PO PRN (08:00)
[2021-01-19] MEDS ORDERED: LOPERAMIDE HCL 2 MG CAPSULE PO PRN (08:00)
[2021-01-19] MEDS ORDERED: HydrOXYzine PAMOATE 50 MG CAPSULE PO PRN (08:00)
[2021-01-19] MEDS ORDERED: FLUoxetine HCL 20 MG CAPSULE PO SCH (09:00)
[2021-01-19] MEDS: NALTREXONE HCL 50 MG TABLET PO SCH (14:00)
[2021-01-19 14:42] VITALS: BP 131/70
[2021-01-19] MEDS: OMEGA-3/DHA/EPA/FISH OIL 1,000 MG CAPSULE PO SCH (15:05)
[2021-01-19] MEDS: THIAMINE 100 MG TABLET PO SCH ×2 (15:05→17:22)
[2021-01-19] MEDS: MULTIVITAMINS WITH MINERALS, THERAPEUTIC TABLET PO SCH (15:05)
[2021-01-19] MEDS: FOLIC ACID 1 MG TABLET PO SCH (15:05)
[2021-01-19] MEDS ORDERED: RisperiDONE 1 MG TABLET PO PRN (15:30)
[2021-01-19] MEDS ORDERED: CloNIDine HCL 0.1 MG TABLET PO PRN (16:15)
[2021-01-19] MEDS: OXcarbazepine 300 MG TABLET PO SCH (17:22)
[2021-01-19] MEDS: TRIHEXYPHENIDYL HCL 5 MG TABLET PO SCH (17:22)
[2021-01-19] MEDS: MELATONIN 5 MG TABLET PO SCH (20:35)
[2021-01-19] MEDS: OLANZapine 5 MG RAPDIS TABLET PO SCH (20:36)
[2021-01-19] MEDS ORDERED: RisperiDONE 3 MG TABLET PO SCH (21:00)
[2021-01-20] VITALS: BP 130/74
[2021-01-20] MEDS ORDERED: -PHARMACY VACCINE NOTE- MISC ONE (01:45)
[2021-01-20] MEDS ORDERED: IBUPROFEN 600 MG TABLET PO PRN (08:15)
[2021-01-20] MEDS ORDERED: ACETAMINOPHEN 325 MG TABLET PO PRN (08:15)
[2021-01-20 08:25] VITALS: BP 134/86
[2021-01-20] MEDS: NALTREXONE HCL 50 MG TABLET PO SCH (08:50)
[2021-01-20] MEDS: OXcarbazepine 300 MG TABLET PO SCH ×2 (08:50→16:40)
[2021-01-20] MEDS: THIAMINE 100 MG TABLET PO SCH ×2 (08:50→16:40)
[2021-01-20] MEDS: OMEGA-3/DHA/EPA/FISH OIL 1,000 MG CAPSULE PO SCH (08:50)
[2021-01-20] MEDS: TRIHEXYPHENIDYL HCL 5 MG TABLET PO SCH ×2 (08:50→16:40)
[2021-01-20] MEDS: BuPROPion HCL XL 150 MG ER TABLET PO SCH (08:51)
[2021-01-20] MEDS: MULTIVITAMINS WITH MINERALS, THERAPEUTIC TABLET PO SCH (08:51)
[2021-01-20] MEDS: FOLIC ACID 1 MG TABLET PO SCH (08:51)
[2021-01-20] MEDS: CEPHALEXIN MONOHYDRATE 500 MG CAPSULE PO SCH ×4 (10:07→20:42)
[2021-01-20 16:45] VITALS: BP 108/60
[2021-01-20] MEDS: RisperiDONE 4 MG TABLET PO SCH (20:42)
[2021-01-20] MEDS: MELATONIN 5 MG TABLET PO SCH (20:42)
[2021-01-20] MEDS: OLANZapine 5 MG RAPDIS TABLET PO SCH (20:42)
[2021-01-20] MEDS ORDERED: PETROLATUM,WHITE 28 GM JELLY TP PRN (21:45)
[2021-01-21 01:16] VITALS: BP 129/77
[2021-01-21] MEDS: CEPHALEXIN MONOHYDRATE 500 MG CAPSULE PO SCH ×4 (08:16→20:10)
[2021-01-21] MEDS: OMEGA-3/DHA/EPA/FISH OIL 1,000 MG CAPSULE PO SCH (08:16)
[2021-01-21] MEDS: MULTIVITAMINS WITH MINERALS, THERAPEUTIC TABLET PO SCH (08:16)
[2021-01-21] MEDS: TRIHEXYPHENIDYL HCL 5 MG TABLET PO SCH ×2 (08:16→16:55)
[2021-01-21] MEDS: FOLIC ACID 1 MG TABLET PO SCH (08:16)
[2021-01-21] MEDS: BuPROPion HCL XL 150 MG ER TABLET PO SCH (08:17)
[2021-01-21] MEDS: OXcarbazepine 300 MG TABLET PO SCH ×2 (08:17→16:55)
[2021-01-21] MEDS: THIAMINE 100 MG TABLET PO SCH ×2 (08:17→16:55)
[2021-01-21 08:36] VITALS: BP 110/66
[2021-01-21] MEDS: NALTREXONE HCL 50 MG TABLET PO SCH (09:24)
[2021-01-21] MEDS: LORazepam 2 MG TABLET PO PRN (11:39)
[2021-01-21 16:22] VITALS: BP 119/71
[2021-01-21] MEDS: MELATONIN 5 MG TABLET PO SCH (20:10)
[2021-01-21] MEDS: RisperiDONE 4 MG TABLET PO SCH (20:10)
[2021-01-21] MEDS: OLANZapine 5 MG RAPDIS TABLET PO SCH (20:13)
[2021-01-22 00:26] VITALS: BP 117/69
[2021-01-22] MEDS: MULTIVITAMINS WITH MINERALS, THERAPEUTIC TABLET PO SCH (08:19)
[2021-01-22] MEDS: FOLIC ACID 1 MG TABLET PO SCH (08:19)
[2021-01-22] MEDS: OXcarbazepine 300 MG TABLET PO SCH ×2 (08:20→15:58)
[2021-01-22] MEDS: THIAMINE 100 MG TABLET PO SCH ×2 (08:20→15:58)
[2021-01-22] MEDS: OMEGA-3/DHA/EPA/FISH OIL 1,000 MG CAPSULE PO SCH (08:20)
[2021-01-22] MEDS: BuPROPion HCL XL 150 MG ER TABLET PO SCH (08:20)
[2021-01-22] MEDS: CEPHALEXIN MONOHYDRATE 500 MG CAPSULE PO SCH ×4 (08:21→20:30)
[2021-01-22] MEDS: NICOTINE 21 MG/24 HOUR PATCH TD SCH (08:21)
[2021-01-22] MEDS: NALTREXONE HCL 50 MG TABLET PO SCH (08:21)
[2021-01-22] MEDS: TRIHEXYPHENIDYL HCL 5 MG TABLET PO SCH ×2 (08:23→16:14)
[2021-01-22 08:39] VITALS: BP 128/66
[2021-01-22] MEDS: LORazepam 2 MG TABLET PO PRN ×2 (09:36→15:58)
[2021-01-22 16:32] VITALS: BP 145/88
[2021-01-22] MEDS: MELATONIN 5 MG TABLET PO SCH (20:30)
[2021-01-22] MEDS: RisperiDONE 4 MG TABLET PO SCH (20:30)
[2021-01-22] MEDS ORDERED: OLANZapine 10 MG RAPDIS TABLET PO SCH (21:00)
[2021-01-23 05:14] VITALS: BP 146/81
[2021-01-23] MEDS: TRIHEXYPHENIDYL HCL 5 MG TABLET PO SCH (08:16)
[2021-01-23] MEDS: OMEGA-3/DHA/EPA/FISH OIL 1,000 MG CAPSULE PO SCH (08:17)
[2021-01-23] MEDS: BuPROPion HCL XL 150 MG ER TABLET PO SCH (08:17)
[2021-01-23] MEDS: THIAMINE 100 MG TABLET PO SCH (08:17)
[2021-01-23] MEDS: NICOTINE 21 MG/24 HOUR PATCH TD SCH (08:20)
[2021-01-23 09:21] VITALS: BP 136/82
[2021-01-23] MEDS: MULTIVITAMINS WITH MINERALS, THERAPEUTIC TABLET PO SCH (09:21)
[2021-01-23] MEDS: CEPHALEXIN MONOHYDRATE 500 MG CAPSULE PO SCH (09:35)
[2021-01-23] MEDS: OXcarbazepine 300 MG TABLET PO SCH (09:35)
[2021-01-23] MEDS: NALTREXONE HCL 50 MG TABLET PO SCH (09:35)
[2021-01-23] MEDS ORDERED: MELA5TAB40 PO (10:49)
[2021-01-23] MEDS ORDERED: OXCA300T57 PO (10:49)
[2021-01-23] MEDS ORDERED: OLAN10TA26 PO (10:49)
[2021-01-23] MEDS ORDERED: OMEG-135 PO (10:49)
[2021-01-23] MEDS ORDERED: NALT50TA PO (10:49)
[2021-01-23] MEDS ORDERED: CEPH500C3 PO ×2 (12:04→12:05)
== END 2021-01-23 12:40 | disposition home or self-care (01) | DRG 750 ==
LOC: B2S 08:47
PROVIDERS: ADMIT Psychiatry & Neurology Psychiatry; ATTEND Psychiatry & Neurology Psychiatry
DX: F25.9 Schizoaffective disorder, unspecified (principal); Z91.19 Patient's noncompliance with other medical treatment and regimen; F12.90 Cannabis use, unspecified, uncomplicated; I10 Essential (primary) hypertension; J44.9 Chronic obstructive pulmonary disease, unspecified; S60.421A Blister (nonthermal) of left index finger, initial encounter; X58.XXXA Exposure to other specified factors, initial encounter; S00.81XA Abrasion of other part of head, initial encounter; Z20.822 Contact with and (suspected) exposure to COVID-19; Z88.8 Allergy status to other drugs, medicaments and biological substances; Z55.9 Problems related to education and literacy, unspecified; Z87.891 Personal history of nicotine dependence; Z59.9 Problem related to housing and economic circumstances, unspecified; Y93.89 Activity, other specified; Y92.89 Other specified places as the place of occurrence of the external cause; Y99.8 Other external cause status; Z65.3 Problems related to other legal circumstances
CPT/HCPCS: Q9967

== ENCOUNTER 2021-01-19 08:39 | Emergency (ER) | payer MEDICAID, OTHER ==
[~2021-01-19] VITALS: Ht 188 cm; Wt 120.5 kg
[2021-01-19 10:54] VITALS: BP 148/86
== END 2021-01-19 12:09 | disposition home or self-care (01) ==
LOC: EMS 08:41
DX: S01.81XA Laceration without foreign body of other part of head, initial encounter (principal); F20.9 Schizophrenia, unspecified; F32.9 Major depressive disorder, single episode, unspecified; I10 Essential (primary) hypertension; F17.210 Nicotine dependence, cigarettes, uncomplicated; F12.90 Cannabis use, unspecified, uncomplicated; F19.90 Other psychoactive substance use, unspecified, uncomplicated; Z88.8 Allergy status to other drugs, medicaments and biological substances; X78.8XXA Intentional self-harm by other sharp object, initial encounter; Y93.89 Activity, other specified; Y92.89 Other specified places as the place of occurrence of the external cause; Y99.8 Other external cause status
CPT/HCPCS: 99284; Z7502